=== PATIENT | male | born 1950 | race Caucasian/White ===

== ENCOUNTER 2020-12-07 06:29 | Day surgery (SDC) | payer MEDICARE, SELFPAY ==
[2020-12-07] VITALS (7 sets, daily range): BP systolic 133–150; BP diastolic 67–78; PULSE 62–70; RESP 17–21; TEMP 36.2–37; O2SAT 95–100; BMI 30.4
--- NOTE | 2020-12-07 07:04 | HO.ANESPROP2 ---
[facility] Social History Social History Smoking Status: Never smoker Second Hand Smoke Exposure: No Use of substances other than those prescribed or required for medical reasons: No Are you DNR?: No Advance Directives: No Advance Directives Information Provided: Yes Recently lost weight without trying: No Meds Allergies Allergy/AdvReac Type Severity Reaction Status Date / Time erythromycin base Allergy Mild JAUNDICE Unverified 03/31/20 14:53 [Erythromycin Base] Exam Exam Date and Time: December 07, 2020 0704 Height,Weight and Vital Signs: Height 6 ft Weight 101.605 kg Last Vital Signs Temp 97.7 F 12/07/20 06:41 Pulse 70 12/07/20 06:41 Resp 17 12/07/20 06:41 BP 135/78 12/07/20 06:41 Pulse Ox 95 12/07/20 06:41 Airway Mallampati Class: II (Caps lateral) TM Dist: >3cm Neck ROM: Full Heart: RrR Lungs: CtA Assessment and Plan Assessment Anesthesia Assessment: Anesthesia Plan Discussed and Chart Reviewed Final Anesthetic Review NPO: Yes ASA Class: III Final Preanesthetic Review: No Changes in Pt Med Stat and Consent Obtained/Reviewed Patient Risk: Intermediate Procedure Risk: Intermediate Anesthetic Plan Anesthetic Plan: GA Disposition: Standard PACU
--- NOTE | 2020-12-07 07:08 | MHC.SHP ---
Pre-Procedural Eval Section A The patient is an INPATIENT: No Changes since office visit: Yes Changes in Medication and Yes Patient answered all questions; No Cold of Flu in the past 2 weeks and No New Medical Problems The History & Physical has been completed within 30 days and I have reviewed it.: Yes Section B Chief Complaint: depression Allergies: Allergies Allergy/AdvReac Type Severity Reaction Status Date / Time erythromycin base Allergy Mild JAUNDICE Unverified 03/31/20 14:53 [Erythromycin Base] Plan I have reviewed the history and physical and performed a pertinent physical examination on my patient. No changes have occurred unless specified.
--- NOTE | 2020-12-07 07:26 | HO.ECTPROC ---
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 hx htn bifasicular block ECT Settings Device: THYMATRON DGx Electrode Placement: Right Unilateral Program/Pulse Width: 0.25 Energy Percent: 100 Seizure Duration By EEG (in seconds): 27 Medications Administration General Anesthetic: Etomidate (14 plus 20 lido) Muscle Relaxant: Succinylcholine (100) Ancillary Medications Analgesics: Torodol - Pre ECT Anti-emetics: Zofran - Pre ECT Cardiovascular Medications: Labetolol Miscillaneous Medications: Propofol (30) and Midazolam (2) Airway Management Airway Management: Bag Mask Ventilation Treatment Recommendations Notes: try and hold lidocaine next tx or use flumazenil pre tx Pt Tolerated Procedure w/o Issue: Yes
== END 2020-12-07 09:00 | disposition home or self-care (01) ==
PROVIDERS: PCP Internal Medicine; Visit Provider Psychiatry & Neurology Psychiatry
PROC: (CPT 90870; principal; 2020-12-07 10:00)
DX: F33.3 Major depressive disorder, recurrent, severe with psychotic symptoms (principal); I45.2 Bifascicular block; I10 Essential (primary) hypertension; B19.20 Unspecified viral hepatitis C without hepatic coma
CPT/HCPCS: 90870; J0330; J1885; J2250; J2405

== ENCOUNTER 2020-12-09 06:04 | Day surgery (SDC) | payer MEDICARE, SELFPAY ==
[2020-12-09] VITALS (7 sets, daily range): BP systolic 136–171; BP diastolic 71–86; PULSE 68–80; RESP 17–18; TEMP 36.7–37; O2SAT 96–98; BMI 29.0
--- NOTE | 2020-12-09 07:09 | HO.ANESPROP2 ---
[facility] Past Medical History Medical History (Updated 12/09/20 @ 07:11 by Geovanny Reyes MD) Diastolic CHF Hepatitis C Hypertension Metabolic syndrome Surgical History Surgical History (Updated 12/09/20 @ 07:12 by Geovanny Reyes MD) S/P cervical spinal fusion Social History Social History Are you a primary pediatric care coordinator to a significant other at home: No Do you presently have visiting nurse or other home services: No Patient Tobacco Use Status: Never used Tobacco Second Hand Smoke Exposure: No Use of substances other than those prescribed or required for medical reasons: No Have you been hit, kicked, punched, or otherwise hurt by someone within the past year? If so, by whom?: No Are you DNR?: No Advance Directives: No Advance Directives Information Provided: Yes Recently lost weight without trying: No How much weight loss: 2-13 pounds Eating poorly because of decreased appetite: No Nutrition screen score: 1 Nutrition Risks: No Nutritional Risk Poor oral hygiene: No Meds Allergies Allergy/AdvReac Type Severity Reaction Status Date / Time erythromycin base Allergy Mild JAUNDICE Unverified 03/31/20 14:53 [Erythromycin Base] Exam Exam Date and Time: December 09, 2020 0709 Height,Weight and Vital Signs: Height 6 ft Weight 214 lb 7.098 oz Last Vital Signs Temp 98.6 F 12/09/20 06:38 Pulse 80 12/09/20 06:38 Resp 18 12/09/20 06:38 BP 158/86 H 12/09/20 06:38 Pulse Ox 98 12/09/20 06:38 Airway Mallampati Class: II TM Dist: >3cm Loose/Missing/Broken Teeth: Yes Heart: RRR Lungs: NL Assessment and Plan Assessment Anesthesia Assessment: Anesthesia Plan Discussed and Chart Reviewed Final Anesthetic Review NPO: Yes ASA Class: III Final Preanesthetic Review: No Changes in Pt Med Stat, Meds/Allgs Chart Reviewed, Consent Obtained/Reviewed and Anes Risks/Benef Reviewed Patient Risk: Intermediate Procedure Risk: Low Anesthetic Plan Anesthetic Plan: GA Disposition: Standard PACU
--- NOTE | 2020-12-09 07:09 | MHC.SHP ---
Pre-Procedural Eval Section A The patient is an INPATIENT: No Changes since office visit: Yes Patient answered all questions; No Cold of Flu in the past 2 weeks, No New Medical Problems and No Changes in Medication The History & Physical has been completed within 30 days and I have reviewed it.: Yes Section B Chief Complaint: depression Allergies: Allergies Allergy/AdvReac Type Severity Reaction Status Date / Time erythromycin base Allergy Mild JAUNDICE Unverified 03/31/20 14:53 [Erythromycin Base] Plan I have reviewed the history and physical and performed a pertinent physical examination on my patient. No changes have occurred unless specified.
--- NOTE | 2020-12-09 07:46 | HO.ECTPROC ---
ECT Procedure Note Diagnosis/Treatment Date of Service: 12/09/20 Current Treatment Number: 2 Treatment: Series Interval Clinical Notes: tolerated first ect no active si ECT Settings Device: THYMATRON DGx Electrode Placement: Right Unilateral Program/Pulse Width: 0.50 Energy Percent: 100 Seizure Duration By EEG (in seconds): 33 Medications Administration General Anesthetic: Etomidate (14 plus 20 lido) Muscle Relaxant: Succinylcholine (100) Ancillary Medications Analgesics: Torodol - Pre ECT Anti-emetics: Zofran - Pre ECT Miscillaneous Medications: Propofol (30) and Midazolam (2) Treatment Recommendations No Changes Recommended: No change Notes: cont tx series Pt Tolerated Procedure w/o Issue: Yes
== END 2020-12-09 08:20 | disposition home or self-care (01) ==
PROVIDERS: PCP Internal Medicine; Visit Provider Psychiatry & Neurology Psychiatry
PROC: (CPT 90870; principal; 2020-12-09 15:50)
DX: F33.2 Major depressive disorder, recurrent severe without psychotic features (principal); F33.9 Major depressive disorder, recurrent, unspecified; G25.0 Essential tremor; I11.0 Hypertensive heart disease with heart failure; I50.30 Unspecified diastolic (congestive) heart failure; B19.20 Unspecified viral hepatitis C without hepatic coma; E88.81 Metabolic syndrome and other insulin resistance; Z79.899 Other long term (current) drug therapy; Z88.1 Allergy status to other antibiotic agents
CPT/HCPCS: 90870; J0330; J1885; J2250; J2405

== ENCOUNTER 2020-12-14 06:00 | Day surgery (SDC) | payer MEDICARE, SELFPAY ==
[2020-12-14] VITALS (7 sets, daily range): BP systolic 152–174; BP diastolic 78–91; PULSE 80–95; RESP 16–18; TEMP 36.4–36.8; O2SAT 97–100; BMI 30.4; BMI 29.0
--- NOTE | 2020-12-14 07:01 | P.CONAN_ITS ---
[facility] Active Problems Active Problems: All Active Problems (Updated 12/09/20 @ 07:11 by Remigio Bolden) S/P cervical spinal fusion (Acute) Hypertension (Acute) Hepatitis C (Acute) Metabolic syndrome (Acute) Diastolic CHF (Acute) Past Medical History Medical History (Updated 12/09/20 @ 07:11 by Geovanny Reyes MD) Diastolic CHF Hepatitis C Hypertension Metabolic syndrome Surgical History Surgical History (Updated 12/09/20 @ 07:12 by Geovanny Reyes MD) S/P cervical spinal fusion Social History Social History Are you a primary acute care occupational therapist to a significant other at home: No Do you presently have visiting nurse or other home services: No Patient Tobacco Use Status: Never used Tobacco Second Hand Smoke Exposure: No Advance Directives: No Advance Directives Information Provided: Yes Meds Allergies Allergy/AdvReac Type Severity Reaction Status Date / Time erythromycin base Allergy Mild JAUNDICE Unverified 03/31/20 14:53 [Erythromycin Base] Exam Exam Date and Time: December 14, 2020 0701 Height,Weight and Vital Signs: Height 6 ft Weight 101.605 kg Last Vital Signs Temp 98.3 F 12/14/20 06:23 Pulse 92 12/14/20 06:23 Resp 16 12/14/20 06:23 BP 152/90 H 12/14/20 06:23 Pulse Ox 100 12/14/20 06:23 Airway Mallampati Class: II TM Dist: >3cm Neck ROM: Full Heart: RRR Lungs: CTA Assessment and Plan Assessment Anesthesia Assessment: Anesthesia Plan Discussed and Chart Reviewed Final Anesthetic Review NPO: Yes ASA Class: III Final Preanesthetic Review: No Changes in Pt Med Stat and Consent Obtained/Reviewed Patient Risk: Intermediate Procedure Risk: Intermediate Anesthetic Plan Anesthetic Plan: GA Disposition: Standard PACU
--- NOTE | 2020-12-14 07:10 | HO.ECTPROC ---
ECT Procedure Note Diagnosis/Treatment Date of Service: 12/26/20 Diagnosis: Major Depressive Disorder Current Treatment Number: 3 Treatment: Series Interval Clinical Notes: tolerated first 2 tx took lorazepam late ECT Settings Device: THYMATRON DGx Electrode Placement: Right Unilateral Program/Pulse Width: 0.50 Energy Percent: 100 Seizure Duration By EEG (in seconds): 19 Medications Administration General Anesthetic: Etomidate (14 plus 20 prop) Muscle Relaxant: Succinylcholine (100) Ancillary Medications Analgesics: Torodol - Pre ECT (15) Anti-emetics: Zofran - Pre ECT (4) Miscillaneous Medications: Propofol, Midazolam and Flumazenil Airway Management Airway Management: Bag Mask Ventilation Treatment Recommendations Notes: change to bifrontal Pt Tolerated Procedure w/o Issue: Yes
== END 2020-12-14 09:04 | disposition home or self-care (01) ==
LOC: HO.SSS 09:43
PROVIDERS: PCP Internal Medicine; Visit Provider Psychiatry & Neurology Psychiatry
PROC: (CPT 90870; principal; 2020-12-14 08:00)
DX: F33.2 Major depressive disorder, recurrent severe without psychotic features (principal); I11.0 Hypertensive heart disease with heart failure; I50.30 Unspecified diastolic (congestive) heart failure; B19.20 Unspecified viral hepatitis C without hepatic coma; E88.81 Metabolic syndrome and other insulin resistance; Z88.1 Allergy status to other antibiotic agents
CPT/HCPCS: 90870

== ENCOUNTER 2020-12-16 06:21 | Day surgery (SDC) | payer MEDICARE, SELFPAY ==
--- NOTE | 2020-12-14 07:10 | HO.ECTPROC ---
ECT Procedure Note Diagnosis/Treatment Date of Service: 12/14/20 Diagnosis: Major Depressive Disorder Current Treatment Number: 3 Treatment: Series ECT Settings Device: THYMATRON DGx Electrode Placement: Right Unilateral Program/Pulse Width: 0.50 Energy Percent: 100 Seizure Duration By EEG (in seconds): 19 Medications Administration General Anesthetic: Etomidate (14 plus 20 prop) Muscle Relaxant: Succinylcholine (100) Ancillary Medications Analgesics: Torodol - Pre ECT (15) Anti-emetics: Zofran - Pre ECT (4) Miscillaneous Medications: Propofol, Midazolam and Flumazenil Airway Management Airway Management: Bag Mask Ventilation Treatment Recommendations Notes: change to bifrontal Pt Tolerated Procedure w/o Issue: Yes
[2020-12-16 06:31] VITALS: BP 152/76; PULSE 83; RESP 18; TEMP 36.6; O2SAT 98; BMI 30.4
--- NOTE | 2020-12-16 07:30 | HO.ECTPROC ---
ECT Procedure Note Diagnosis/Treatment Date of Service: 12/16/20 Diagnosis: Major Depressive Disorder Previous ECT Date: 12/14/20 Current Treatment Number: 4 Treatment: Series Interval Clinical Notes: pt anxious dysphoric ECT Settings Device: THYMATRON DGx Electrode Placement: Right Unilateral Program/Pulse Width: 0.50 Energy Percent: 100 Seizure Duration By EEG (in seconds): 24 Medications Administration General Anesthetic: Etomidate (14 ) Muscle Relaxant: Succinylcholine (100) Ancillary Medications Analgesics: Torodol - Pre ECT Anti-emetics: Zofran - Pre ECT Miscillaneous Medications: Midazolam Airway Management Airway Management: Bag Mask Ventilation Treatment Recommendations Electrode Placement: Bifrontal Notes: change to bifrontal no flumazenil
[2020-12-16 07:34] VITALS: BP 136/63; PULSE 66; RESP 18; TEMP 36.6; O2SAT 96
[2020-12-16 07:39] VITALS: BP 130/70; PULSE 75; RESP 18; O2SAT 96
[2020-12-16 07:44] VITALS: BP 155/74; PULSE 78; RESP 19; O2SAT 97
[2020-12-16 07:49] VITALS: BP 154/78; PULSE 77; RESP 17; O2SAT 98
[2020-12-16 08:04] VITALS: BP 156/87; PULSE 71; RESP 18; TEMP 36.6; O2SAT 98
== END 2020-12-16 08:23 | disposition home or self-care (01) ==
PROVIDERS: PCP Internal Medicine; Visit Provider Psychiatry & Neurology Psychiatry
PROC: (CPT 90870; principal; 2020-12-16 08:00)
DX: F32.9 Major depressive disorder, single episode, unspecified (principal); F41.9 Anxiety disorder, unspecified; Z79.899 Other long term (current) drug therapy
CPT/HCPCS: 90870; J0330; J1885; J2250; J2405

== ENCOUNTER 2020-12-21 06:07 | Day surgery (SDC) | payer MEDICARE, SELFPAY ==
[2020-12-21] VITALS (7 sets, daily range): BP systolic 118–138; BP diastolic 60–71; PULSE 73–88; RESP 16–19; TEMP 36.6–36.7; O2SAT 94–98; BMI 30.4
--- NOTE | 2020-12-21 06:57 | P.CONAN_ITS ---
[facility] Active Problems Active Problems: All Active Problems (Updated 12/09/20 @ 07:11 by Remigio Bolden) S/P cervical spinal fusion (Acute) Hypertension (Acute) Hepatitis C (Acute) Metabolic syndrome (Acute) Diastolic CHF (Acute) Past Medical History Medical History (Updated 12/09/20 @ 07:11 by Geovanny Reyes MD) Diastolic CHF Hepatitis C Hypertension Metabolic syndrome Surgical History Surgical History (Updated 12/09/20 @ 07:12 by Geovanny Reyes MD) S/P cervical spinal fusion Social History Social History Are you a primary aged or disabled carer to a significant other at home: No Do you presently have visiting nurse or other home services: No Patient Tobacco Use Status: Never used Tobacco Second Hand Smoke Exposure: No Advance Directives: No Advance Directives Information Provided: Yes Meds Allergies Allergy/AdvReac Type Severity Reaction Status Date / Time erythromycin base Allergy Mild JAUNDICE Unverified 03/31/20 14:53 [Erythromycin Base] Exam Exam Date and Time: December 21, 2020 0657 Height,Weight and Vital Signs: Height 6 ft Weight 101.984 kg Last Vital Signs Temp 98.0 F 12/21/20 06:20 Pulse 86 12/21/20 06:20 Resp 17 12/21/20 06:20 BP 138/71 12/21/20 06:20 Pulse Ox 96 12/21/20 06:20 Airway Mallampati Class: I (Caps laterally) TM Dist: >3cm Neck ROM: Full Heart: RRR Lungs: CtA Assessment and Plan Assessment Anesthesia Assessment: Anesthesia Plan Discussed and Chart Reviewed Final Anesthetic Review NPO: Yes (Sip water with meds) ASA Class: III Final Preanesthetic Review: No Changes in Pt Med Stat and Consent Obtained/Reviewed Patient Risk: Intermediate Procedure Risk: Intermediate Anesthetic Plan Anesthetic Plan: GA Disposition: Standard PACU
--- NOTE | 2020-12-21 07:09 | HO.ECTPROC ---
ECT Procedure Note Diagnosis/Treatment Date of Service: 12/21/20 Diagnosis: Major Depressive Disorder Previous ECT Date: 12/16/20 Current Treatment Number: 5 Treatment: Series Interval Clinical Notes: pt ruminating overwhelmed with worries re anesthesia side effects burning pain ECT Settings Device: THYMATRON DGx Electrode Placement: Bifrontal Program/Pulse Width: 0.50 Energy Percent: 100 Seizure Duration By EEG (in seconds): 14 Medications Administration General Anesthetic: Methohexital (120) Muscle Relaxant: Succinylcholine (100) Ancillary Medications Analgesics: Torodol - Pre ECT (15) Anti-emetics: Zofran - Pre ECT Miscillaneous Medications: Propofol (30) and Midazolam (2) Airway Management Airway Management: Bag Mask Ventilation Treatment Recommendations Electrode Placement: Rt temporal/ Lt frontal Program/Pulse Width: 0.50 Notes: did well with brevital no more available ? push anesthesia slowly Pt Tolerated Procedure w/o Issue: Yes
== END 2020-12-21 08:30 | disposition home or self-care (01) ==
PROVIDERS: PCP Internal Medicine; Visit Provider Psychiatry & Neurology Psychiatry
PROC: (CPT 90870; principal; 2020-12-21 07:00)
DX: F32.9 Major depressive disorder, single episode, unspecified (principal)
CPT/HCPCS: 90870; J0330; J1885; J2250; J2405

== ENCOUNTER 2020-12-23 06:02 | Day surgery (SDC) | payer MEDICARE, SELFPAY ==
[2020-12-23] VITALS (8 sets, daily range): BP systolic 123–158; BP diastolic 58–87; PULSE 65–82; RESP 16–18; TEMP 36.3–36.7; O2SAT 95–99; BMI 30.4
--- NOTE | 2020-12-23 06:55 | HO.ANESPROP2 ---
[facility] Active Problems Active Problems: All Active Problems (Updated 12/09/20 @ 07:11 by Geovanny Reyes MD) S/P cervical spinal fusion (Acute) Hypertension (Acute) Hepatitis C (Acute) Metabolic syndrome (Acute) Diastolic CHF (Acute) Past Medical History Medical History (Updated 12/09/20 @ 07:11 by Geovanny Reyes MD) Diastolic CHF Hepatitis C Hypertension Metabolic syndrome Surgical History Surgical History (Updated 12/09/20 @ 07:12 by Geovanny Reyes MD) S/P cervical spinal fusion Social History Social History Are you a primary human services care specialist to a significant other at home: No Do you presently have visiting nurse or other home services: No Patient Tobacco Use Status: Never used Tobacco Second Hand Smoke Exposure: No Are you DNR?: No Advance Directives: No Advance Directives Information Provided: Yes Nutrition Risks: No Nutritional Risk Poor oral hygiene: No Meds Allergies Allergy/AdvReac Type Severity Reaction Status Date / Time erythromycin base Allergy Mild JAUNDICE Unverified 03/31/20 14:53 [Erythromycin Base] Exam Exam Date and Time: December 23, 2020 0655 Height,Weight and Vital Signs: Height 6 ft Weight 101.605 kg Last Vital Signs Temp 97.3 F 12/23/20 06:23 Pulse 82 12/23/20 06:23 Resp 16 12/23/20 06:23 BP 123/63 12/23/20 06:23 Pulse Ox 97 12/23/20 06:23 Airway Mallampati Class: II TM Dist: >3cm Neck ROM: Full Heart: RRR Lungs: CtA Assessment and Plan Assessment Anesthesia Assessment: Anesthesia Plan Discussed and Chart Reviewed Final Anesthetic Review NPO: Yes (Sip water with meds) ASA Class: III Final Preanesthetic Review: No Changes in Pt Med Stat and Consent Obtained/Reviewed Patient Risk: Intermediate Procedure Risk: Intermediate Anesthetic Plan Anesthetic Plan: GA Disposition: Standard PACU
--- NOTE | 2020-12-23 07:10 | MHC.SHP ---
Pre-Procedural Eval Section A The patient is an INPATIENT: No Changes since office visit: No Cold of Flu in the past 2 weeks, No New Medical Problems, No Changes in Medication and No Patient answered all questions The History & Physical has been completed within 30 days and I have reviewed it.: Yes Section B Chief Complaint: depression Details of Present Illness: On ECT for depression, very sensitive to pain Relevant Family History (Specify if Yes): No Relevant Social History: None Present Medications: see Short Stay Collaborative assessment Medical History: Significant History (Hep C, metabolic syndrome, HTN) Allergies: Allergies Allergy/AdvReac Type Severity Reaction Status Date / Time erythromycin base Allergy Mild JAUNDICE Unverified 03/31/20 14:53 [Erythromycin Base] Review of Systems Sugical H&P ROS: Negative: Constitution, Cardiovascular, Respiratory, Neurological, Psychiatric, Hem-Onc, Allergic/Immunologic, Gastrointestinal, Genitourinary, Musculoskeletal, Integumentary, Endocrine and Eyes/Ears/Nose/Throat Exam Surgical H&P Exam: Normal: HEENT, Normal: Heart, Normal: Lungs, Normal: Extremities, Normal: Abdomen, Normal: Skin and Normal: Neurological Plan Diagnosis/Plan: Unchanged I have reviewed the history and physical and performed a pertinent physical examination on my patient. No changes have occurred unless specified.
--- NOTE | 2020-12-23 07:12 | HO.ECTPROC ---
ECT Procedure Note Diagnosis/Treatment Date of Service: 12/23/20 Diagnosis: Major Depressive Disorder Current Treatment Number: 6 Treatment: Series Interval Clinical Notes: The patient reports been still depressed. ECT Settings Device: THYMATRON DGx Electrode Placement: Right Unilateral Program/Pulse Width: 0.50 Energy Percent: 100 Seizure Duration By EEG (in seconds): 27 By Motor Observation (in seconds): 12 Medications Administration General Anesthetic: Etomidate (14) and Other Muscle Relaxant: Succinylcholine (100) Ancillary Medications Analgesics: Torodol - Pre ECT and Other (lidocaine 20 and 20 after ECT) Anti-emetics: Zofran - Pre ECT Miscillaneous Medications: Propofol and Midazolam Airway Management Airway Management: Bag Mask Ventilation Treatment Recommendations No Changes Recommended: No change Pt Tolerated Procedure w/o Issue: Yes
== END 2020-12-23 08:35 | disposition home or self-care (01) ==
PROVIDERS: Psychiatry & Neurology Psychiatry; PCP Internal Medicine; Visit Provider Psychiatry & Neurology Psychiatry
PROC: (CPT 90870; principal; 2020-12-23 07:30)
DX: F33.9 Major depressive disorder, recurrent, unspecified (principal); I11.0 Hypertensive heart disease with heart failure; I50.30 Unspecified diastolic (congestive) heart failure; B19.20 Unspecified viral hepatitis C without hepatic coma; E88.81 Metabolic syndrome and other insulin resistance
CPT/HCPCS: 90870; J0330; J1885; J2250; J2405

== ENCOUNTER 2020-12-26 06:26 | Day surgery (SDC) | payer MEDICARE, SELFPAY ==
[2020-12-26] VITALS (8 sets, daily range): BP systolic 116–142; BP diastolic 60–80; PULSE 64–83; RESP 15–19; TEMP 36.2–36.9; O2SAT 97–99; BMI 31.1
--- NOTE | 2020-12-26 07:00 | MHC.SHP ---
Pre-Procedural Eval Section A The patient is an INPATIENT: No Changes since office visit: No Cold of Flu in the past 2 weeks, No New Medical Problems, No Changes in Medication and No Patient answered all questions The History & Physical has been completed within 30 days and I have reviewed it.: No Section B Chief Complaint: depression Allergies: Allergies Allergy/AdvReac Type Severity Reaction Status Date / Time erythromycin base Allergy Mild JAUNDICE Unverified 03/31/20 14:53 [Erythromycin Base] Plan I have reviewed the history and physical and performed a pertinent physical examination on my patient. No changes have occurred unless specified.
--- NOTE | 2020-12-26 07:00 | HO.ECTPROC ---
ECT Procedure Note Diagnosis/Treatment Date of Service: 12/26/20 Diagnosis: Major Depressive Disorder Previous ECT Date: 12/23/20 Current Treatment Number: 7 Treatment: Series Interval Clinical Notes: The patient reported that last ECT, he didn't have any burning or pain for anesthesia since Lidocaiane was pushed initially. Still dysphoric. ECT Settings Device: THYMATRON DGx Electrode Placement: Right Unilateral Program/Pulse Width: 0.50 Energy Percent: 100 Seizure Duration By EEG (in seconds): 49 By Motor Observation (in seconds): 12 Medications Administration General Anesthetic: Etomidate (14) and Other (lidocaine 60 mg before anestesia) Muscle Relaxant: Succinylcholine (100) Ancillary Medications Analgesics: Torodol - Pre ECT Anti-emetics: Zofran - Pre ECT Miscillaneous Medications: Propofol Airway Management Airway Management: Bag Mask Ventilation Treatment Recommendations No Changes Recommended: No change Pt Tolerated Procedure w/o Issue: Yes
--- NOTE | 2020-12-26 07:14 | P.CONAN_ITS ---
[facility] Active Problems Active Problems: All Active Problems (Updated 12/09/20 @ 07:11 by Remigio Bolden) S/P cervical spinal fusion (Acute) Hypertension (Acute) Hepatitis C (Acute) Metabolic syndrome (Acute) Diastolic CHF (Acute) Past Medical History Medical History Diastolic CHF Hepatitis C Hypertension Metabolic syndrome Surgical History Surgical History S/P cervical spinal fusion Social History Social History Are you a primary career and technology education teacher to a significant other at home: No Do you presently have visiting nurse or other home services: No Patient Tobacco Use Status: Never used Tobacco Second Hand Smoke Exposure: No Are you DNR?: No Advance Directives: No Advance Directives Information Provided: Yes Meds Allergies Allergy/AdvReac Type Severity Reaction Status Date / Time erythromycin base Allergy Mild JAUNDICE Unverified 03/31/20 14:53 [Erythromycin Base] Exam Exam Date and Time: December 26, 2020 0714 Height,Weight and Vital Signs: Height 6 ft Weight 104.326 kg Last Vital Signs Temp 97.2 F 12/26/20 06:32 Pulse 83 12/26/20 06:32 Resp 18 12/26/20 06:32 BP 142/80 H 12/26/20 06:32 Pulse Ox 99 12/26/20 06:32 Airway Mallampati Class: II TM Dist: >3cm Neck ROM: Full
[2020-12-26] MEDS: LORazepam 1 MG TABLET PO (08:28)
== END 2020-12-26 08:53 | disposition home or self-care (01) ==
PROVIDERS: PCP Internal Medicine; Visit Provider Psychiatry & Neurology Psychiatry
PROC: (CPT 90870; principal; 2020-12-26 07:00)
DX: F32.9 Major depressive disorder, single episode, unspecified (principal); I10 Essential (primary) hypertension
CPT/HCPCS: 90870; J0330; J1885; J2250; J2405

== ENCOUNTER 2020-12-28 06:08 | Day surgery (SDC) | payer MEDICARE, SELFPAY ==
[2020-12-28 06:47] VITALS: BP 136/73; PULSE 82; RESP 18; TEMP 36.1; O2SAT 96; BMI 31.1
--- NOTE | 2020-12-28 07:03 | P.CONAN_ITS ---
[facility] Active Problems Active Problems: All Active Problems (Updated 12/09/20 @ 07:11 by Remigio Bolden) S/P cervical spinal fusion (Acute) Hypertension (Acute) Hepatitis C (Acute) Metabolic syndrome (Acute) Diastolic CHF (Acute) Past Medical History Medical History Diastolic CHF Hepatitis C Hypertension Metabolic syndrome Surgical History Surgical History S/P cervical spinal fusion Social History Social History Are you a primary neurocritical care physician to a significant other at home: No Do you presently have visiting nurse or other home services: No Patient Tobacco Use Status: Never used Tobacco Second Hand Smoke Exposure: No Are you DNR?: No Advance Directives: No Advance Directives Information Provided: Yes Meds Allergies Allergy/AdvReac Type Severity Reaction Status Date / Time erythromycin base Allergy Mild JAUNDICE Unverified 03/31/20 14:53 [Erythromycin Base] Exam Exam Date and Time: December 28, 2020 0703 Height,Weight and Vital Signs: Height 6 ft Weight 104.326 kg Last Vital Signs Temp 97 F 12/28/20 06:47 Pulse 82 12/28/20 06:47 Resp 18 12/28/20 06:47 BP 136/73 12/28/20 06:47 Pulse Ox 96 12/28/20 06:47 Airway Mallampati Class: II TM Dist: >3cm Neck ROM: Full Heart: rrr Lungs: cta Assessment and Plan Assessment Anesthesia Assessment: Anesthesia Plan Discussed and Chart Reviewed Final Anesthetic Review NPO: Yes ASA Class: III Final Preanesthetic Review: No Changes in Pt Med Stat and Consent Obtained/Reviewed Patient Risk: Intermediate Procedure Risk: Intermediate Anesthetic Plan Anesthetic Plan: GA Disposition: Standard PACU
--- NOTE | 2020-12-28 07:27 | HO.ECTPROC ---
ECT Procedure Note Diagnosis/Treatment Date of Service: 12/28/20 Diagnosis: Major Depressive Disorder Previous ECT Date: 12/26/20 Current Treatment Number: 8 Treatment: Series Interval Clinical Notes: pt with no clear improvement no cognitive side effects ECT Settings Device: THYMATRON DGx Electrode Placement: Rt temporal/ Lt frontal Program/Pulse Width: 0.50 Energy Percent: 100 Seizure Duration By EEG (in seconds): 16 Medications Administration General Anesthetic: Etomidate (14) and Other (lidocaine 60 mg before anestesia) Muscle Relaxant: Succinylcholine (100) Ancillary Medications Anti-emetics: Zofran - Pre ECT Airway Management Airway Management: Bag Mask Ventilation Treatment Recommendations Electrode Placement: Bitemporal Program/Pulse Width: 0.50 Notes: change to bitemp ? iv caffeine no change in depression Pt Tolerated Procedure w/o Issue: Yes
[2020-12-28 07:48] VITALS: BP 133/75; PULSE 71; RESP 16; TEMP 36.6; O2SAT 97
[2020-12-28 07:53] VITALS: BP 140/72; PULSE 79; RESP 16; O2SAT 99
[2020-12-28 07:58] VITALS: BP 159/75; PULSE 80; RESP 18; O2SAT 98
[2020-12-28 08:04] VITALS: BP 144/88; PULSE 77; RESP 17; TEMP 36.2; O2SAT 96
[2020-12-28 08:20] VITALS: BP 155/79; PULSE 69; RESP 17; TEMP 36.2; O2SAT 98
--- NOTE | 2020-12-28 08:49 | PC.NURSE ---
Ativan 1 mg po given prior to discharge per Dr Sánchez
== END 2020-12-28 08:40 | disposition home or self-care (01) ==
PROVIDERS: PCP Internal Medicine; Visit Provider Psychiatry & Neurology Psychiatry
PROC: (CPT 90870; principal; 2020-12-28 07:30)
DX: F32.9 Major depressive disorder, single episode, unspecified (principal)
CPT/HCPCS: 90870; J0330; J1885; J2250; J2405

== ENCOUNTER 2021-01-02 06:00 | Day surgery (SDC) | payer MEDICARE, SELFPAY ==
[2021-01-02] VITALS (8 sets, daily range): BP systolic 120–177; BP diastolic 62–78; PULSE 66–84; RESP 16–18; TEMP 36.2–36.6; O2SAT 94–97; BMI 30.5
--- NOTE | 2021-01-02 07:05 | P.CONAN_ITS ---
[facility] Active Problems Active Problems: All Active Problems (Updated 12/09/20 @ 07:11 by Geovanny Reyes MD) S/P cervical spinal fusion (Acute) Hypertension (Acute) Hepatitis C (Acute) Metabolic syndrome (Acute) Diastolic CHF (Acute) Past Medical History Medical History Diastolic CHF Hepatitis C Hypertension Metabolic syndrome Surgical History Surgical History S/P cervical spinal fusion Social History Social History Are you a primary behavioral health care manager to a significant other at home: No Do you presently have visiting nurse or other home services: No Patient Tobacco Use Status: Never used Tobacco Second Hand Smoke Exposure: No Advance Directives: No Advance Directives Information Provided: Yes Recently lost weight without trying: No Meds Allergies Allergy/AdvReac Type Severity Reaction Status Date / Time erythromycin base Allergy Mild JAUNDICE Unverified 03/31/20 14:53 [Erythromycin Base] Exam Exam Date and Time: January 02, 2021 0705 Height,Weight and Vital Signs: Height 6 ft Weight 102.058 kg Last Vital Signs Temp 97.2 F 01/02/21 06:23 Pulse 84 01/02/21 06:23 Resp 17 01/02/21 06:23 BP 140/69 H 01/02/21 06:23 Pulse Ox 97 01/02/21 06:23 Airway Mallampati Class: II TM Dist: >3cm Neck ROM: Full Heart: RRR Lungs: CTA
--- NOTE | 2021-01-02 07:18 | MHC.SHP ---
Pre-Procedural Eval Section A The patient is an INPATIENT: No Changes since office visit: No Cold of Flu in the past 2 weeks, No New Medical Problems, No Changes in Medication and No Patient answered all questions The History & Physical has been completed within 30 days and I have reviewed it.: Yes Section B Chief Complaint: depression Allergies: Allergies Allergy/AdvReac Type Severity Reaction Status Date / Time erythromycin base Allergy Mild JAUNDICE Unverified 03/31/20 14:53 [Erythromycin Base] Plan I have reviewed the history and physical and performed a pertinent physical examination on my patient. No changes have occurred unless specified.
--- NOTE | 2021-01-02 07:19 | HO.ECTPROC ---
ECT Procedure Note Diagnosis/Treatment Date of Service: 01/02/21 Diagnosis: Major Depressive Disorder Previous ECT Date: 12/30/20 Current Treatment Number: 9 Treatment: Series Interval Clinical Notes: The patient remains depressed, no effect on his mood or anxiety with the previous treatment so he agreed to change to bitemporal ECT to maximize effectivenenss. He denies cognitive side effects with previous ECTs ECT Settings Device: THYMATRON DGx Electrode Placement: Bitemporal Program/Pulse Width: 0.50 Energy Percent: 100 Seizure Duration By EEG (in seconds): 52 Medications Administration General Anesthetic: Etomidate (14) Muscle Relaxant: Succinylcholine Ancillary Medications Analgesics: Torodol - Pre ECT Anti-emetics: Zofran - Pre ECT Miscillaneous Medications: Propofol and Midazolam Airway Management Airway Management: Bag Mask Ventilation Treatment Recommendations No Changes Recommended: No change
--- NOTE | 2021-01-02 10:51 | HO.POSTANES ---
Post Anesthesia Evaluation Post Anesthesia Evaluation Vital Signs: Vital Signs Temp Pulse Resp BP Pulse Ox 01/02/21 08:46 71 18 168/77 H 97 01/02/21 08:25 97.6 F 76 18 177/65 H 97 01/02/21 08:10 73 16 160/78 H 97 01/02/21 07:55 69 16 144/70 H 97 01/02/21 07:50 66 16 129/66 95 01/02/21 07:45 68 18 120/62 94 01/02/21 07:40 97.8 F 72 16 171/73 H 97 01/02/21 06:23 97.2 F 84 17 140/69 H 97 Anesthesia: General Mental Status: Awake Pain Control: Satisfactory Nausea/Vomiting: None Hydration: Adequate Anesthesia-Related Issues: No Anes. Related Issues
== END 2021-01-02 08:55 | disposition home or self-care (01) ==
PROVIDERS: PCP Internal Medicine; Visit Provider Psychiatry & Neurology Psychiatry
PROC: (CPT 90870; principal; 2021-01-02 15:00)
DX: F33.2 Major depressive disorder, recurrent severe without psychotic features (principal); I11.0 Hypertensive heart disease with heart failure; G25.0 Essential tremor; I50.30 Unspecified diastolic (congestive) heart failure; B19.20 Unspecified viral hepatitis C without hepatic coma; E88.81 Metabolic syndrome and other insulin resistance; Z79.899 Other long term (current) drug therapy; Z88.1 Allergy status to other antibiotic agents
CPT/HCPCS: 90870; J0330; J1885; J2250; J2405

== ENCOUNTER → 2022-05-03 14:59 | Outpatient (BNVA) | payer MEDICARE, SELFPAY | PROVIDERS: PCP Internal Medicine; Visit Provider Psychiatry & Neurology Psychiatry | DX: F41.8 Other specified anxiety disorders (principal) | CPT/HCPCS: 99212 ==

== ENCOUNTER → 2022-06-11 13:33 | Outpatient (BNVA) | payer MEDICARE, SELFPAY | PROVIDERS: PCP Internal Medicine; Visit Provider Psychiatry & Neurology Psychiatry | DX: F42.9 Obsessive-compulsive disorder, unspecified (principal); F33.9 Major depressive disorder, recurrent, unspecified; F41.8 Other specified anxiety disorders; F43.10 Post-traumatic stress disorder, unspecified; I11.0 Hypertensive heart disease with heart failure; I50.30 Unspecified diastolic (congestive) heart failure; Z98.1 Arthrodesis status | CPT/HCPCS: Q3014 ==

== ENCOUNTER → 2022-06-25 13:29 | Outpatient (BNVA) | payer MEDICARE, SELFPAY | PROVIDERS: PCP Internal Medicine; Visit Provider Psychiatry & Neurology Psychiatry | DX: F33.9 Major depressive disorder, recurrent, unspecified (principal); F42.9 Obsessive-compulsive disorder, unspecified; F41.1 Generalized anxiety disorder; I11.0 Hypertensive heart disease with heart failure; I50.30 Unspecified diastolic (congestive) heart failure | CPT/HCPCS: Q3014 ==

== ENCOUNTER → 2022-07-25 12:50 | Outpatient (BNVA) | payer MEDICARE, SELFPAY | PROVIDERS: PCP Internal Medicine; Visit Provider Psychiatry & Neurology Psychiatry | DX: Z13.89 Encounter for screening for other disorder (principal) ==

== ENCOUNTER → 2022-08-21 14:34 | Outpatient (BNVA) | payer MEDICARE, SELFPAY | PROVIDERS: PCP Family Medicine; Visit Provider Psychiatry & Neurology Psychiatry | DX: F33.9 Major depressive disorder, recurrent, unspecified (principal); F42.9 Obsessive-compulsive disorder, unspecified | CPT/HCPCS: 90833; Q3014 ==

== ENCOUNTER → 2022-10-05 16:30 | Outpatient (BNVA) | payer MEDICARE, SELFPAY | PROVIDERS: Visit Provider Psychiatry & Neurology Psychiatry | DX: F33.9 Major depressive disorder, recurrent, unspecified (principal); F42.9 Obsessive-compulsive disorder, unspecified; I10 Essential (primary) hypertension | CPT/HCPCS: 90833; Q3014 ==

== ENCOUNTER → 2022-10-25 15:56 | Outpatient (BNVA) | payer MEDICARE, SELFPAY | PROVIDERS: PCP Family Medicine; Visit Provider Psychiatry & Neurology Psychiatry | DX: F33.9 Major depressive disorder, recurrent, unspecified (principal); F42.9 Obsessive-compulsive disorder, unspecified | CPT/HCPCS: Q3014 ==

== ENCOUNTER → 2022-11-13 15:02 | Outpatient (BNVA) | payer MEDICARE, SELFPAY | PROVIDERS: PCP Family Medicine; Visit Provider Psychiatry & Neurology Psychiatry | DX: F33.9 Major depressive disorder, recurrent, unspecified (principal); F42.9 Obsessive-compulsive disorder, unspecified; I10 Essential (primary) hypertension | CPT/HCPCS: Q3014 ==

== ENCOUNTER 2023-01-02 16:20 | Outpatient (AMB) | payer MEDICARE, SELFPAY ==
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
== END 2023-01-02 16:23 | disposition home or self-care (01) ==
LOC: HO.HOP 16:20
PROVIDERS: PCP Family Medicine; Visit Provider Psychiatry & Neurology Psychiatry
DX: F33.9 Major depressive disorder, recurrent, unspecified (principal); F42.9 Obsessive-compulsive disorder, unspecified
CPT/HCPCS: 99213; 99214

== ENCOUNTER → 2023-01-02 16:20 | Outpatient (BNVA) | payer MEDICARE, SELFPAY | PROVIDERS: PCP Family Medicine; Visit Provider Psychiatry & Neurology Psychiatry | DX: F33.9 Major depressive disorder, recurrent, unspecified (principal); F42.9 Obsessive-compulsive disorder, unspecified | CPT/HCPCS: 99212; Q3014 ==

== ENCOUNTER 2023-01-30 15:55 | Outpatient (AMB) | payer MEDICARE, SELFPAY ==
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
== END 2023-01-30 15:58 | disposition home or self-care (01) ==
LOC: HO.HOP 15:55
PROVIDERS: PCP Family Medicine; Visit Provider Psychiatry & Neurology Psychiatry
DX: F33.1 Major depressive disorder, recurrent, moderate (principal); F42.9 Obsessive-compulsive disorder, unspecified; I10 Essential (primary) hypertension
CPT/HCPCS: 99213

== ENCOUNTER → 2023-01-30 15:55 | Outpatient (BNVA) | payer MEDICARE, SELFPAY | PROVIDERS: PCP Family Medicine; Visit Provider Psychiatry & Neurology Psychiatry | DX: F33.9 Major depressive disorder, recurrent, unspecified (principal); F42.9 Obsessive-compulsive disorder, unspecified; I10 Essential (primary) hypertension | CPT/HCPCS: Q3014 ==

== ENCOUNTER 2023-02-19 16:54 | Outpatient (AMB) | payer MEDICARE, SELFPAY ==
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
== END 2023-02-19 16:58 | disposition home or self-care (01) ==
LOC: HO.HOP 16:54
PROVIDERS: PCP Family Medicine; Visit Provider Psychiatry & Neurology Psychiatry
DX: F33.9 Major depressive disorder, recurrent, unspecified (principal); F42.9 Obsessive-compulsive disorder, unspecified
CPT/HCPCS: 99213

== ENCOUNTER → 2023-02-19 16:54 | Outpatient (BNVA) | payer MEDICARE, SELFPAY | PROVIDERS: PCP Family Medicine; Visit Provider Psychiatry & Neurology Psychiatry ==

== ENCOUNTER 2023-03-11 17:28 | Outpatient (AMB) | payer MEDICARE, SELFPAY ==
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
== END 2023-03-11 17:29 | disposition home or self-care (01) ==
LOC: HO.HOP 17:29
PROVIDERS: PCP Family Medicine; Visit Provider Psychiatry & Neurology Psychiatry
DX: F33.1 Major depressive disorder, recurrent, moderate (principal); F42.9 Obsessive-compulsive disorder, unspecified
CPT/HCPCS: 99214

== ENCOUNTER → 2023-03-11 17:28 | Outpatient (BNVA) | payer MEDICARE, SELFPAY | PROVIDERS: PCP Family Medicine; Visit Provider Psychiatry & Neurology Psychiatry ==

== ENCOUNTER 2023-04-23 16:53 | Outpatient (AMB) | payer MEDICARE, SELFPAY ==
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
== END 2023-04-23 16:53 | disposition home or self-care (01) ==
LOC: HO.HOP 16:53
PROVIDERS: PCP Family Medicine; Visit Provider Psychiatry & Neurology Psychiatry
DX: F33.1 Major depressive disorder, recurrent, moderate (principal); F41.1 Generalized anxiety disorder; F42.9 Obsessive-compulsive disorder, unspecified
CPT/HCPCS: 99213

== ENCOUNTER → 2023-04-23 16:53 | Outpatient (BNVA) | payer MEDICARE, SELFPAY | PROVIDERS: PCP Family Medicine; Visit Provider Psychiatry & Neurology Psychiatry ==

== ENCOUNTER 2023-04-29 12:38 | Outpatient (AMB) | payer MEDICARE, SELFPAY ==
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
== END 2023-04-29 13:42 | disposition home or self-care (01) ==
LOC: HO.HOP 12:38
PROVIDERS: PCP Family Medicine; Visit Provider Psychiatry & Neurology Psychiatry
DX: F33.1 Major depressive disorder, recurrent, moderate (principal); F42.9 Obsessive-compulsive disorder, unspecified
CPT/HCPCS: 99213

== ENCOUNTER → 2023-04-29 12:38 | Outpatient (BNVA) | payer MEDICARE, SELFPAY | PROVIDERS: PCP Family Medicine; Visit Provider Psychiatry & Neurology Psychiatry ==

== ENCOUNTER 2023-05-01 01:04 | Inpatient (IN) | payer MEDICARE, SELFPAY ==
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
[2023-05-01 01:20] VITALS: BP 138/69; PULSE 72; RESP 18; TEMP 36.6; O2SAT 96; BMI 32.8
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
--- NOTE | 2023-05-01 09:00 | ECG_ITS ---
Test Reason : qtc check Blood Pressure : / mmHG Vent. Rate : 060 BPM Atrial Rate : 060 BPM P-R Int : 180 ms QRS Dur : 146 ms QT Int : 448 ms P-R-T Axes : 047 -64 038 degrees QTc Int : 448 ms Normal sinus rhythm Right bundle branch block Left anterior fascicular block Bifascicular block Abnormal ECG When compared with ECG of 04-FEB-2014 15:54, Nonspecific T wave abnormality no longer evident in Anterior leads Referred By: Yvette Wen Electronically Signed By:GARFIELD CAMACHO MD
[2023-05-01 09:10] LABS: Estimated Average Glucose 97 mg/dL
[2023-05-01 09:21] LABS: Alanine Aminotransferase 13 U/L (0-40); Albumin Level 3.2 g/dL (3.5-5.0); Alkaline Phosphatase 64 U/L (39-117); Anion Gap 11 (12-20); Aspartate Amino Transferase 14 U/L (5-37); Bilirubin Total 0.7 mg/dL (0.0-1.0); Blood Urea Nitrogen 13 mg/dL (9-16); Calcium 7.9 mg/dL (8.4-10.2); Carbon Dioxide 27 mmol/L (22-29); Chloride 102 mmol/L (96-108); Cholesterol 129 mg/dL (<200); Estimated Glomerular Filt Rate > 60; Glucose Fasting 98 mg/dL (60-99); HDL Cholesterol 44 mg/dL (>40); LDL Cholesterol Calculated 65 mg/dL (<100); Potassium 3.6 mmol/L (3.3-5.1); Sodium 136 mmol/L (135-145); Total Protein 5.7 g/dL (6.5-8.0); Triglycerides 100 mg/dL (<150)
[2023-05-01 09:36] LABS: Free T4 (Free Thyroxine) 1.03 ng/dL (0.71-1.85); Thyroid Stimulating Hormone 3.67 uIU/mL (0.32-4.0)
[2023-05-01] MEDS: Acetaminophen 325 MG TABLET 650 MG PO (09:43)
[2023-05-01 09:44] LABS: Folate 7.1 ng/mL (> or = 4.0); Vitamin B12 423 pg/mL (200-900)
[2023-05-01 09:53] VITALS: BP 127/61; PULSE 68; RESP 20; TEMP 36.8; O2SAT 98
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
[2023-05-01] MEDS: FLUoxetine HCl 20 MG CAPSULE 40 MG PO (16:40)
[2023-05-01] MEDS: Magnesium Hydrox/Alum Hydrox 30 ML ORAL.SUSP PO (17:11)
[2023-05-01] MEDS: Levothyroxine Sodium 125 MCG TABLET PO (17:43)
[2023-05-01] MEDS: carvediloL 12.5 MG TABLET PO (17:43)
[2023-05-01] MEDS: Omeprazole 20 MG CAPSULE.DR PO (18:10)
[2023-05-01 20:05] VITALS: BP 125/57; PULSE 78; RESP 18; TEMP 36.8; O2SAT 98
[2023-05-01] MEDS: QUEtiapine Fumarate 50 MG TABLET PO (21:13)
[2023-05-01] MEDS: traZODone HCL 50 MG TABLET PO (21:13)
[2023-05-01] MEDS: carvediloL 25 MG TABLET PO (21:13)
[2023-05-02 07:00] VITALS: BMI 32.5
--- NOTE | 2023-05-02 08:00 | ECG_ITS ---
Test Reason : l hemiblock Blood Pressure : / mmHG Vent. Rate : 060 BPM Atrial Rate : 060 BPM P-R Int : 174 ms QRS Dur : 144 ms QT Int : 440 ms P-R-T Axes : 061 -59 040 degrees QTc Int : 440 ms Normal sinus rhythm Right bundle branch block Left anterior fascicular block Bifascicular block Abnormal ECG When compared with ECG of 01-MAY-2023 09:34, No significant change was found Referred By: Carlo Sánchez Electronically Signed By:GARFIELD CAMACHO MD
[2023-05-02] MEDS: FLUoxetine HCl 20 MG CAPSULE 40 MG PO (08:35)
[2023-05-02] MEDS: Levothyroxine Sodium 125 MCG TABLET PO (08:36)
[2023-05-02] MEDS: Omeprazole 20 MG CAPSULE.DR PO ×2 (08:36→16:48)
[2023-05-02] MEDS: Cariprazine HCl 1.5 MG CAPSULE PO (08:36)
[2023-05-02 09:19] LABS: Ammonia 46 umol/L (13-55)
[2023-05-02 09:23] VITALS: BP 116/54; PULSE 73; RESP 18; TEMP 36.4; O2SAT 97
[2023-05-02] MEDS: Acetaminophen 325 MG TABLET 650 MG PO ×2 (09:24→18:33)
[2023-05-02 09:26] LABS: Calcium 8.5 mg/dL (8.4-10.2); Magnesium 2.2 mg/dL (1.6-2.6)
[2023-05-02 09:33] LABS: Valproate < 12.5 mcg/mL (50.0-100.0)
[2023-05-02 20:35] VITALS: BP 121/70; PULSE 75; RESP 18; TEMP 36.3; O2SAT 96
[2023-05-02] MEDS: Mirtazapine 7.5 MG TABLET PO (20:36)
[2023-05-02] MEDS: QUEtiapine Fumarate 50 MG TABLET PO (20:36)
[2023-05-02] MEDS: carvediloL 25 MG TABLET PO (20:36)
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
[2023-05-03] MEDS: Levothyroxine Sodium 125 MCG TABLET PO (07:09)
[2023-05-03] MEDS: Omeprazole 20 MG CAPSULE.DR PO ×2 (07:09→17:30)
[2023-05-03 08:35] VITALS: BP 113/56; PULSE 71; RESP 16; TEMP 36.7; O2SAT 99
[2023-05-03] MEDS: FLUoxetine HCl 20 MG CAPSULE 40 MG PO (09:16)
[2023-05-03] MEDS: Cariprazine HCl 1.5 MG CAPSULE PO (09:16)
[2023-05-03] MEDS: diazePAM 5 MG TABLET PO ×2 (09:51→20:20)
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
[2023-05-03] MEDS: Lidocaine 4 % Patch ADH..PATCH 1 PATCH TRANSDERMA (18:02)
[2023-05-03] MEDS: Ibuprofen 400 MG TABLET PO ×2 (18:16→23:15)
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
[2023-05-03 19:50] VITALS: BP 160/72; PULSE 80; RESP 17; TEMP 37.2; O2SAT 97
[2023-05-03] MEDS: QUEtiapine Fumarate 50 MG TABLET PO (20:20)
[2023-05-03] MEDS: Tamsulosin HCL 0.4 MG CAPSULE PO (20:21)
[2023-05-03] MEDS: Magnesium Oxide 400 MG TABLET PO (20:21)
[2023-05-03] MEDS: Mirtazapine 7.5 MG TABLET PO (20:21)
[2023-05-04] MEDS: Ibuprofen 400 MG TABLET PO (05:18)
--- NOTE | 2023-05-04 05:27 | PC.NURSE ---
am motrin given with snack
[2023-05-04] MEDS: Levothyroxine Sodium 125 MCG TABLET PO (06:02)
[2023-05-04] MEDS: Acetaminophen 325 MG TABLET 650 MG PO (06:08)
[2023-05-04 08:15] VITALS: BP 161/77; PULSE 90; RESP 16; TEMP 36.2; O2SAT 96
[2023-05-04] MEDS: FLUoxetine HCl 20 MG CAPSULE 40 MG PO (08:24)
[2023-05-04] MEDS: carvediloL 25 MG TABLET PO (08:24)
[2023-05-04] MEDS: Cariprazine HCl 1.5 MG CAPSULE PO (08:24)
[2023-05-04] MEDS: diazePAM 5 MG TABLET PO ×2 (08:25→17:42)
[2023-05-04] MEDS: Lidocaine 4 % Patch ADH..PATCH 1 PATCH TRANSDERMA (08:27)
[2023-05-04] MEDS: Omeprazole 20 MG CAPSULE.DR PO ×2 (08:27→17:36)
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
[2023-05-04] MEDS: Ibuprofen 600 MG TABLET PO ×2 (15:44→20:24)
[2023-05-04] MEDS: Mirtazapine 7.5 MG TABLET PO (20:24)
[2023-05-04] MEDS: QUEtiapine Fumarate 50 MG TABLET PO (20:24)
[2023-05-04] MEDS: Magnesium Oxide 400 MG TABLET PO (20:25)
[2023-05-04] MEDS: Tamsulosin HCL 0.4 MG CAPSULE PO (20:25)
[2023-05-04 20:29] VITALS: BP 183/90; PULSE 82; TEMP 36.7; O2SAT 95
[2023-05-04 22:00] VITALS: BP 158/75; PULSE 80
[2023-05-04] MEDS: carvediloL 12.5 MG TABLET PO (22:10)
[2023-05-05] MEDS: Levothyroxine Sodium 125 MCG TABLET PO (06:43)
[2023-05-05 08:00] VITALS: BP 136/70; PULSE 69; RESP 16; TEMP 36.6; O2SAT 98
[2023-05-05] MEDS: carvediloL 25 MG TABLET PO (08:27)
[2023-05-05] MEDS: Ibuprofen 600 MG TABLET PO ×3 (08:27→20:47)
[2023-05-05] MEDS: Cariprazine HCl 1.5 MG CAPSULE PO (08:27)
[2023-05-05] MEDS: Omeprazole 20 MG CAPSULE.DR PO ×2 (08:27→17:29)
[2023-05-05] MEDS: FLUoxetine HCl 20 MG CAPSULE 40 MG PO (08:27)
[2023-05-05] MEDS: diazePAM 5 MG TABLET PO (13:40)
[2023-05-05] MEDS: Calcitonin,Salmon,Synth Nasal 3.7 ML BOTTLE 1 SPRAY NOSTRILALT (17:29)
[2023-05-05] MEDS: Lidocaine 4 % Patch ADH..PATCH 1 PATCH TRANSDERMA (18:53)
[2023-05-05 20:00] VITALS: BP 157/71; PULSE 78; RESP 16; TEMP 36.6; O2SAT 98
[2023-05-05] MEDS: Tamsulosin HCL 0.4 MG CAPSULE PO (20:43)
[2023-05-05] MEDS: Mirtazapine 7.5 MG TABLET PO (20:43)
[2023-05-05] MEDS: Magnesium Oxide 400 MG TABLET PO (20:43)
[2023-05-05] MEDS: carvediloL 12.5 MG TABLET PO (20:43)
[2023-05-05] MEDS: QUEtiapine Fumarate 50 MG TABLET PO (20:44)
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
[2023-05-06] MEDS: Levothyroxine Sodium 125 MCG TABLET PO (06:50)
[2023-05-06 07:21] LABS: COVID-19 Test Negative (Negative); IDNOW Serial# BCCEAD1C
[2023-05-06 08:28] VITALS: BP 142/65; PULSE 65; RESP 16; TEMP 36.6; O2SAT 99
[2023-05-06] MEDS: Calcitonin,Salmon,Synth Nasal 3.7 ML BOTTLE 1 SPRAY NOSTRILALT (08:44)
[2023-05-06] MEDS: Omeprazole 20 MG CAPSULE.DR PO (08:44)
[2023-05-06] MEDS: carvediloL 25 MG TABLET PO (08:44)
[2023-05-06] MEDS: Ibuprofen 600 MG TABLET PO (08:45)
[2023-05-06] MEDS: Cariprazine HCl 1.5 MG CAPSULE PO (08:45)
[2023-05-06] MEDS: FLUoxetine HCl 20 MG CAPSULE 40 MG PO (08:45)
--- NOTE | 2023-05-06 10:38 | PC.NURSE ---
Sumit is alert, fully oriented, pleasant and cooperative with discharge process. He denies ideation, plan or intent to harm self or others. He reports back pain and has been instructed to follow up with outpatient provider. Discharge medication and appointments reviewed with patient. He is discharged in care of family.
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
== END 2023-05-06 12:37 | disposition home or self-care (01) | DRG 885 ==
PROVIDERS: Clinical Nurse Specialist Psychiatric/Mental Health, Adult; Admitting Provider Psychiatry & Neurology Psychiatry; Responsible Provider Registered Nurse; Visit Provider Psychiatry & Neurology Psychiatry
DX: F33.9 Major depressive disorder, recurrent, unspecified (principal); S32.018A Other fracture of first lumbar vertebra, initial encounter for closed fracture; F41.1 Generalized anxiety disorder; F42.9 Obsessive-compulsive disorder, unspecified; V47.0XXA Car driver injured in collision with fixed or stationary object in nontraffic accident, initial encounter; M47.816 Spondylosis without myelopathy or radiculopathy, lumbar region; M48.061 Spinal stenosis, lumbar region without neurogenic claudication; N40.0 Benign prostatic hyperplasia without lower urinary tract symptoms; E03.9 Hypothyroidism, unspecified; Z20.822 Contact with and (suspected) exposure to COVID-19; Z98.1 Arthrodesis status; Z62.810 Personal history of physical and sexual abuse in childhood; Z79.890 Hormone replacement therapy; Z79.899 Other long term (current) drug therapy
CPT/HCPCS: 36415; 71046; 72100; 72131; 72170; 80053; 80061; 80164; 82140; 82310; 82607; 82746; 83036; 83735; 84439; 84443; 87635; 93005

== ENCOUNTER → 2023-05-01 01:04 | Outpatient (BNV) | payer MEDICARE, SELFPAY | PROVIDERS: Admitting Provider Psychiatry & Neurology Psychiatry; Responsible Provider Registered Nurse; Visit Provider Student in an Organized Health Care Education/Training Program | DX: Z02.2 Encounter for examination for admission to residential institution (principal) | CPT/HCPCS: 99429; 99499 ==

== ENCOUNTER → 2023-05-01 01:04 | Outpatient (BNV) | payer MEDICARE, SELFPAY | PROVIDERS: Admitting Provider Psychiatry & Neurology Psychiatry; Responsible Provider Registered Nurse; Visit Provider Psychiatry & Neurology Psychiatry | DX: F33.2 Major depressive disorder, recurrent severe without psychotic features (principal); F41.1 Generalized anxiety disorder; F42.9 Obsessive-compulsive disorder, unspecified | CPT/HCPCS: 90792; 99231; 99232; 99239 ==

== ENCOUNTER 2023-05-13 14:05 | Outpatient (AMB) | payer MEDICARE, SELFPAY ==
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
[2023-05-13 14:36] VITALS: BP 150/72; PULSE 77; RESP 16; O2SAT 98; BMI 31.1
== END 2023-05-13 15:11 | disposition home or self-care (01) ==
PROVIDERS: Visit Provider Anesthesiology
DX: S22.089A Unspecified fracture of T11-T12 vertebra, initial encounter for closed fracture (principal); S32.009A Unspecified fracture of unspecified lumbar vertebra, initial encounter for closed fracture
CPT/HCPCS: 99203

== ENCOUNTER → 2023-05-13 14:05 | Outpatient (BNVA) | payer MEDICARE, SELFPAY | PROVIDERS: Visit Provider Anesthesiology | DX: S22.089A Unspecified fracture of T11-T12 vertebra, initial encounter for closed fracture (principal); S32.009A Unspecified fracture of unspecified lumbar vertebra, initial encounter for closed fracture | CPT/HCPCS: 99202 ==

== ENCOUNTER 2023-05-20 10:45 | Outpatient (AMB) | payer MEDICARE, SELFPAY ==
--- NOTE | 2023-05-20 10:59 | MHC.OFFVIS ---
Intake Vital Signs 05/20/23 11:09 Height 6 ft Weight 227 lb 2 oz BMI 30.8 BP 160/80 H Blood Pressure Location Lt brachial Position Sitting Respiration 18 Pulse 71 Pulse Source Pulse Oximeter Pulse Oximetry (%) 98 Oxygen Delivery Method Room Air Intake Visit Reasons: follow up kyphoplasty discussion/confirmed Intake Note: patient comes in for follow up to discuss kyphoplasty. He reports pain level today 5-6/10. Allergies erythromycin base [Erythromycin Base] Allergy (Mild, Verified 05/20/23 11:08) JAUNDICE HPI HPI Comments History of Present Illness Details Sumit is back in my office to discuss the results of the stat MRI as well as an addendum MRI. He reports no longer pain in the projection of the upper lumbar area. The palpation of upper lumbar lower thoracic area is completely free of pain. The percussion of the same area does not result in pain exacerbation. He reports mostly on the pain projection of the lower lumbar spine approximately L4-5 S1. His MRI is evident of some changes in the vertebral bodies of this area however the radiologist who read the MRI expressed the opinion that those are not Modic type changes. Therefore intraseptal procedure is not indicated for the patient. He also unlikely a good candidate for the kyphoplasty by many reasons. The radiologist read the retropulsion of the L1 vertebra fracture. The fracture itself is about 30% only of the anterior height. There is no clinical features which would be threatening him with respiratory function being affected by the L1 fracture. Unfortunately at the same time he is a patient with very long psychiatric history of anxiety and panic disorder. That might be an obstacle for him to get his pain treated with neuromodulation. With his history of osteoporosis steroid injections in the lower lumbar spine probably are not indicated. We agreed today that I will not be doing his kyphoplasty. We also agreed today that he will read the brochure of [employer] [facility] and [employer] I DDD inflammation he will find online. After that he will give me a call and make a decision about whether not he wants to go for psychological evaluation. This needs to be done in preparation of neuromodulation of any kind. very pleasant 72 years old gentleman who presents in my office with complains on pain in the right upper chest as well as pain in the upper lower lumbar spine as well as pain in the lower lumbar spine. The patient reported that he went into the emergency room after the accident and CT scan was obtained. It demonstrated compression fracture of L1 and possibly T12 vertebra as. He was referred to us by his psychiatrist Dr. Sánchez for evaluation for kyphoplasty. His past medical history significant for headaches, hypertension, anxiety and depression, alcohol problems, shortness of breath he was diagnosed with pre diabetes but after diet correction his hemoglobin A1c is 5.1. He reports history of hepatitis C in the distant past he was treated with inter for on and above rein. He does not have any viral load at this time. He has generalized arthritis. His past surgical history significant for replacement of the left knee 6 years ago ulnar nerve repositions 10 years ago history of thyroidectomy for multinodular goiter, cervical fusion C4-C5 and clavicular surgery for fracture. 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 He denies pacemaker or defibrillator in the heart. He denies smoking cigarettes drinking alcohol drinking caffeinated beverages he reports that he was addicted to alcohol in the past. [facility] Medical History Opiate abuse, episodic Alcohol abuse Major depression, recurrent, chronic OCD (obsessive compulsive disorder) Diastolic CHF Metabolic syndrome Hepatitis C Hypertension Surgical History S/P cervical spinal fusion Social History Household Members: Spouse Housing: House Are you a primary post acute care nurse to a significant other at home: No Do you presently have visiting nurse or other home services: No Patient Tobacco Use Status: Never used Tobacco e-Cigarette/Vaping Use: Never Used Second Hand Smoke Exposure: No service: No Sexual orientation: Straight/Heterosexual Review of Systems Const All systems reviewed & are unremarkable except as noted in HPI and below Reports body aches, Reports fatigue and Reports lethargy ENT Reports no additional complaints and Reports Normal hearing present Card Reports no additional complaints and Reports dyspnea Resp Reports no additional complaints, Reports cough, Reports pain on inspiration, Reports pain with cough and Reports dyspnea GI Reports no additional complaints Reports no additional complaints Musc Reports as per HPI Neuro Reports no additional complaints, Reports Normal hearing present, Denies Abnormal speech present and Denies Sensory deficit (Neuro) Psych Reports as per HPI Endo Reports fatigue Physical Exam Vital Signs: Last Vital Signs Pulse 71 05/20/23 11:09 Resp 18 05/20/23 11:09 BP 160/80 H 05/20/23 11:09 Pulse Ox 98 05/20/23 11:09 Oxygen Delivery Method Room Air 05/20/23 11:09 BMI result Body Mass Index 30.8 Const General: acute distress mild Orientation/consciousness: patient oriented x3 Limitations: physical limitations Eyes General: appearance normal, both eyes and all related structures Pupils: Equal, round and reactive pupils present EOM: EOMs intact bilaterally Neck Neck: Yes full ROM Chest Chest palpation & inspection: normal inspection of the chest Resp Effort & Inspection: normal respiratory effort, able to speak in complete sentences, normal respiratory pattern, no audible wheezes and no cough Cardio Jugular venous distension: no JVD GI Inspection: Yes normal to inspection Back/Spine/Pelvis Other: Tenderness on palpation in the projection of the lower thoracic and upper lumbar spine. Percussion of the spinous process of approximately T12 and L1is causing severe pain exacerbation for the patient. Strength of bilateral lower extremities seem to be symmetrical, not affected. Thoracic/Lumbar Spine: pain with thoraco-lumbar ROM, paraspinal muscle tenderness and thoraco-lumbar ROM limited Neuro General: patient oriented x3 Cranial nerves: Yes Equal, round and reactive pupils present and Yes Normal hearing present Speech: No Abnormal speech present Motor exam (neuro): 5/5 motor strength present throughout Sensory Exam: No Sensory deficit (Neuro) Extrem General: No pedal edema Psych Speech and movement: Normal speech and movement present Affect: normal affect Attitude: cooperative Thought process: Normal thought process present Thought content: Normal thought content present Insight: Good insight present (Psych) Judgement: Good judgement present (Psych) Results Reviewed Results Reviewed: MRI of the lumbar spine by eddie 05/15/2023. Addendum: No endplate marrow signal changes identify and me to were and description of Modic degenerative endplate changes in the lumbar spine. Finding: Normal lumbar alignment is demonstrated. There is compression deformity of L1 superior endplate showing abnormal T2 hyperintense and T1 hypointense marrow signal. There is loss of 35% of normal total body height there is a slight bony protrusion of the L1 superior endplate into the spinal canal causing mild T12-L1 central canal stenosis. There is a wedge deformity of T12 vertebral body showing no abnormal marrow signal suggesting a chronic or congenital which deformity. Conus medullaris is unremarkable Paraspinal soft tissues and visualized position of the abdomen and pelvis are unremarkable. L1-L2: No significant disc herniation or protrusion no central canal or neural foraminal stenosis mild broad-based disc bulge L2-L3 no significant disc herniation or protrusion. No central canal or neural foraminal stenosis there is mild broad-based disc bulge and ligamentum flavum and Gavino hypertrophy L3-L4 broad-based disc bulge with ligamentum flavum hypertrophy and uncovertebral joint hypertrophy which in combination create mild central canal stenosis. No exiting nerve root encroachment found. L4-5 broad-based disc bulge with ligamentum flavum hypertrophy and uncovertebral joint hypertrophy with combination create mild central canal stenosis. No exiting nerve root encroachment found. There is right-sided neuroforaminal stenosis secondary to right lateral disc bulging and osteophytic spurs of the inferior and superior endplates without nerve root encroachment. L5-S1 intervertebral disc narrowing no focal extradural defects found. There is mild lateral disc bulge causing right-sided neural foraminal stenosis without nerve root encroachment. Assessment & Plan Assessment & Plan (1) Spinal fracture of T12 vertebra: Code(s): S22.089A - Unspecified fracture of T11-T12 vertebra, initial encounter for closed fracture (2) Fracture of lumbar spine without spinal cord lesion: Code(s): S32.009A - Unspecified fracture of unspecified lumbar vertebra, initial encounter for closed fracture Plan With absence of the pain in the projection of the T12 and L1 sites, with absence of the tenderness on palpation and percussion of the L1 and T12 vertebra is and with presence of minor retropulsion on the MRI I do not think that it is a good idea to perform kyphoplasty for this patient. I recommended him breathing exercises, low impact aerobic exercises, he has reversible machine at home he can use to expand and relief abnormal curvature is in his lumbar spine. There is no specific reasons for interventions in the lower lumbar spine. Medial branch blocks can be tried however steroid injections I think would be contraindicated considering osteoporosis of this patient. Brochures on neuromodulation I DDD [employer] and [facility] [employer] were given to patient to make a decision on them. If he would like to try those we would need to send him for psychological evaluation. This could be difficult considering his psych history. Nevertheless if he is approved I do not mind to try SCS never on him and I would not mind to try nonopioid pain pump on him. Patient Instructions: I here by testify that I spent 45 minutes in conversation with this patient as well as evaluating patient's records as well as discussing findings with neurosurgical staff of our hospital as well as organizing today this note. Coding Level of Care Code Est Pt Level 5 (57243) Diagnoses Spinal fracture of T12 vertebra S22.089A Fracture of lumbar spine without spinal cord lesion S32.009A
[2023-05-20 11:09] VITALS: BP 160/80; PULSE 71; RESP 18; O2SAT 98; BMI 30.8
== END 2023-05-20 11:53 | disposition home or self-care (01) ==
PROVIDERS: Visit Provider Anesthesiology
DX: S22.089A Unspecified fracture of T11-T12 vertebra, initial encounter for closed fracture (principal); S32.009A Unspecified fracture of unspecified lumbar vertebra, initial encounter for closed fracture
CPT/HCPCS: 99215

== ENCOUNTER → 2023-05-20 10:45 | Outpatient (BNVA) | payer MEDICARE, SELFPAY | PROVIDERS: Visit Provider Anesthesiology | DX: S22.089A Unspecified fracture of T11-T12 vertebra, initial encounter for closed fracture (principal); S32.009A Unspecified fracture of unspecified lumbar vertebra, initial encounter for closed fracture | CPT/HCPCS: 99212 ==

== ENCOUNTER 2023-07-04 17:13 | Outpatient (AMB) | payer MEDICARE, SELFPAY ==
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
== END 2023-07-04 17:15 | disposition home or self-care (01) ==
LOC: HO.HOP 17:13
PROVIDERS: Visit Provider Psychiatry & Neurology Psychiatry
DX: F41.1 Generalized anxiety disorder (principal); F33.9 Major depressive disorder, recurrent, unspecified; F42.9 Obsessive-compulsive disorder, unspecified
CPT/HCPCS: 99214

== ENCOUNTER → 2023-07-04 17:13 | Outpatient (BNVA) | payer MEDICARE, SELFPAY | PROVIDERS: Visit Provider Psychiatry & Neurology Psychiatry ==

== ENCOUNTER 2023-07-10 12:17 | Outpatient (AMB) | payer MEDICARE, SELFPAY ==
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
== END 2023-07-10 12:17 | disposition home or self-care (01) ==
LOC: HO.HOP 12:17
PROVIDERS: Visit Provider Psychiatry & Neurology Psychiatry
DX: F41.1 Generalized anxiety disorder (principal); F33.9 Major depressive disorder, recurrent, unspecified; F42.9 Obsessive-compulsive disorder, unspecified
CPT/HCPCS: 99214

== ENCOUNTER → 2023-07-10 12:17 | Outpatient (BNVA) | payer MEDICARE, SELFPAY | PROVIDERS: Visit Provider Psychiatry & Neurology Psychiatry ==

== ENCOUNTER → 2023-08-08 16:03 | Outpatient (BNVA) | payer MEDICARE, SELFPAY | PROVIDERS: Visit Provider Psychiatry & Neurology Psychiatry ==

== ENCOUNTER 2023-08-22 15:09 | Outpatient (AMB) | payer MEDICARE, SELFPAY ==
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
== END 2023-08-22 16:19 | disposition home or self-care (01) ==
LOC: HO.HOP 15:09
PROVIDERS: Visit Provider Psychiatry & Neurology Psychiatry
DX: F33.1 Major depressive disorder, recurrent, moderate (principal); F41.1 Generalized anxiety disorder; F42.9 Obsessive-compulsive disorder, unspecified
CPT/HCPCS: 99214

== ENCOUNTER → 2023-08-22 15:09 | Outpatient (BNVA) | payer MEDICARE, SELFPAY | PROVIDERS: Visit Provider Psychiatry & Neurology Psychiatry ==

== ENCOUNTER → 2023-11-08 15:48 | Outpatient (BNVA) | payer MEDICARE, SELFPAY | PROVIDERS: Visit Provider Psychiatry & Neurology Psychiatry ==

== ENCOUNTER 2023-11-26 16:38 | Outpatient (AMB) | payer MEDICARE, SELFPAY ==
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
== END 2023-11-26 16:44 | disposition home or self-care (01) ==
LOC: HO.HOP 16:38
PROVIDERS: Visit Provider Psychiatry & Neurology Psychiatry
DX: F33.2 Major depressive disorder, recurrent severe without psychotic features (principal); F41.1 Generalized anxiety disorder; F42.9 Obsessive-compulsive disorder, unspecified
CPT/HCPCS: 99214

== ENCOUNTER → 2023-11-26 16:38 | Outpatient (BNVA) | payer MEDICARE, SELFPAY | PROVIDERS: Visit Provider Psychiatry & Neurology Psychiatry ==

== ENCOUNTER 2023-12-27 17:25 | Outpatient (AMB) | payer MEDICARE, SELFPAY ==
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
== END 2023-12-27 17:25 | disposition home or self-care (01) ==
LOC: HO.HOP 17:25
PROVIDERS: Visit Provider Psychiatry & Neurology Psychiatry
DX: F33.2 Major depressive disorder, recurrent severe without psychotic features (principal); F41.1 Generalized anxiety disorder; F42.9 Obsessive-compulsive disorder, unspecified
CPT/HCPCS: 99214

== ENCOUNTER → 2023-12-27 17:25 | Outpatient (BNVA) | payer MEDICARE, SELFPAY | PROVIDERS: Visit Provider Psychiatry & Neurology Psychiatry ==

== ENCOUNTER 2024-01-17 17:59 | Outpatient (AMB) | payer MEDICARE, SELFPAY ==
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
== END 2024-01-17 18:00 | disposition home or self-care (01) ==
LOC: HO.HOP 17:59
PROVIDERS: Visit Provider Psychiatry & Neurology Psychiatry
DX: F33.9 Major depressive disorder, recurrent, unspecified (principal); F42.9 Obsessive-compulsive disorder, unspecified
CPT/HCPCS: 99214

== ENCOUNTER → 2024-01-17 17:59 | Outpatient (BNVA) | payer MEDICARE, SELFPAY | PROVIDERS: Visit Provider Psychiatry & Neurology Psychiatry ==

== ENCOUNTER 2024-01-29 11:45 | Outpatient (AMB) | payer MEDICARE, SELFPAY ==
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
== END 2024-01-29 11:56 | disposition home or self-care (01) ==
LOC: HO.HOP 11:45
PROVIDERS: Visit Provider Psychiatry & Neurology Psychiatry
DX: F41.1 Generalized anxiety disorder (principal); F33.9 Major depressive disorder, recurrent, unspecified; F42.9 Obsessive-compulsive disorder, unspecified
CPT/HCPCS: 99214

== ENCOUNTER → 2024-01-29 11:45 | Outpatient (BNVA) | payer MEDICARE, SELFPAY | PROVIDERS: Visit Provider Psychiatry & Neurology Psychiatry ==

== ENCOUNTER 2024-02-10 12:36 | Outpatient (REF) | payer MEDICARE, SELFPAY ==
[2024-02-10 12:56] LABS: MANUAL DIFF FLAG NO
[2024-02-10 13:10] LABS: Ammonia 41 umol/L (13-55)
[2024-02-10 14:02] LABS: Basophils Absolute Auto 0.1 X10*3/uL (0.0-0.2); Eosinophils Absolute Auto 0.2 X10*3/uL (0.0-0.4); Eosinophils Percent Auto 2.8 % (0-4); Hematocrit 41.7 % (42.0-52.0); Hemoglobin 14.1 g/dl (14.0-18.0); Imm Gran Abs Auto 0.01 X10*3/uL (0.00-0.03); Imm Gran Pct Auto 0.1 % (0.0-0.4); Lymphocytes Absolute Auto 1.8 X10*3/uL (1.2-4.9); Lymphocytes Percent Auto 27.4 % (20-40); Mean Corpuscular HGB Conc 33.8 g/dl (31.0-36.0); Mean Corpuscular Hemoglobin 29.1 pg (27.0-33.0); Mean Platelet Volume 12.2 fL (9.4-12.4); Monocytes Absolute Auto 0.4 X10*3/uL (0.1-1.2); Monocytes Percent Auto 6.1 % (2-11); Neutrophils Absolute Auto 4.2 x10*3/uL (2.0-8.3); Neutrophils Percent Auto 62.6 % (45-73); Platelet Count 189 X10*3/uL (160-400); Red Blood Count 4.85 X10*6/uL (4.60-5.80); Red Cell Distribution Width 14.2 % (11.0-16.0); White Blood Count 6.7 X10*3/uL (4.8-10.8)
[2024-02-10 15:08] LABS: Estimated Average Glucose 97 mg/dL
[2024-02-10 15:09] LABS: Alanine Aminotransferase 14 U/L (0-40); Alkaline Phosphatase 81 U/L (39-117); Anion Gap 11 (12-20); Aspartate Amino Transferase 14 U/L (5-37); Bilirubin Total 1.3 mg/dL (0.0-1.0); Blood Urea Nitrogen 13 mg/dL (9-16); Calcium 8.9 mg/dL (8.4-10.2); Carbon Dioxide 25 mmol/L (22-29); Chloride 108 mmol/L (96-108); Estimated Glomerular Filt Rate > 60; Glucose Fasting 92 mg/dL (60-99); Potassium 3.4 mmol/L (3.3-5.1); Sodium 141 mmol/L (135-145); Total Protein 6.8 g/dL (6.5-8.0)
[2024-02-10 15:23] LABS: TSH reflex Free T4 0.98 uIU/mL (0.32-4.0)
[2024-02-10 15:50] LABS: Valproate < 12.5 mcg/mL (50.0-100.0)
== END 2024-02-10 12:37 | disposition home or self-care (01) ==
LOC: HO.LAB 12:36
PROVIDERS: PCP Family Medicine; Visit Provider Psychiatry & Neurology Psychiatry
DX: F42.9 Obsessive-compulsive disorder, unspecified (principal); F33.9 Major depressive disorder, recurrent, unspecified; B19.20 Unspecified viral hepatitis C without hepatic coma; Z86.19 Personal history of other infectious and parasitic diseases; S32.009A Unspecified fracture of unspecified lumbar vertebra, initial encounter for closed fracture; E88.810 Metabolic syndrome; Z13.1 Encounter for screening for diabetes mellitus
CPT/HCPCS: 36415; 80053; 80164; 82140; 83036; 84443; 85025

== ENCOUNTER 2024-02-19 17:35 | Outpatient (AMB) | payer MEDICARE, SELFPAY ==
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
== END 2024-02-19 17:44 | disposition home or self-care (01) ==
LOC: HO.HOP 17:35
PROVIDERS: PCP Internal Medicine; Visit Provider Psychiatry & Neurology Psychiatry
DX: F33.9 Major depressive disorder, recurrent, unspecified (principal); F42.9 Obsessive-compulsive disorder, unspecified
CPT/HCPCS: 99214

== ENCOUNTER → 2024-02-19 17:35 | Outpatient (BNVA) | payer MEDICARE, SELFPAY | PROVIDERS: PCP Internal Medicine; Visit Provider Psychiatry & Neurology Psychiatry ==